=== PATIENT | female | born 1940 | race Caucasian/White ===

== ENCOUNTER 2022-06-10 14:22 | Outpatient (CLI) | payer OTHER, SELFPAY ==
--- NOTE | ~2022-06-10 | CT_ITS ---
EXAMINATION: CT abdomen pelvis wo con DATE: 06/10/2022 17:02 INDICATION: Chronic urinary tract infection. TECHNIQUE: Computed tomography (CT) of the abdomen and pelvis was performed without intravenous contr ast. Automated exposure control and iterative reconstruction technique were employed. The dose-length product was 1543.14 mGy-cm. COMPARISON: Abdomen radiographs 06/10/2022 FINDINGS: The visualized portions of the lung bases demonstrate mild atelectasis and mild chronic nela g disease. There is a cluster of tree-in-bud opacities in left lower lobe, likely inflammation/infect ion. No pleural effusion. The heart size is normal. There are pacer wires in right atrium, right vent ricle, and coronary sinus. No pericardial effusion. The liver is normal. There are gallstones in the gallbladder, which is normal in size. The spleen, pancreas, and adrenal glands are normal. There are cysts in the kidneys measuring up to 2.1 cm on the right. There are 2 mm and 4 mm stones in right kid mason. There are approximately five stones in left kidney measuring up to 3 mm. There is a 3 mm stone a t left ureteropelvic junction. There are no dilated loops of bowel. The appendix is not visualized. T here are no pathologically enlarged lymph nodes. There is no free intraperitoneal fluid. There is sev ere lumbar spondylosis. 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 There are changes of posterior fusion pr ocedure from L3 to S1 with pedicle screws. IMPRESSION: 1. Small stones in the kidneys and left ureteropelvic junction. No hydronephrosis. Reviewed, dictated and finalized at location A. IMPRESSION: 1. Small stones in the kidneys and left ureteropelvic junction. No hydronephros is.
--- NOTE | ~2022-06-10 | XR_ITS ---
XR abdomen/kub 1V 06/10/2022 16:56 INDICATION: Flank pain TECHNIQUE: KUB COMPARISON: No prior studies for comparison. FINDINGS: Bowel gas pattern is normal. There is no evidence of free air, mass, organomegaly, ascites or obstruction. There are calcifications overlying the left kidney, consistent with renal stones. Th e right kidney is obscured by bowel content. There are surgical changes consistent with fusion at the lumbosacral junction. Severe lumbar spondylosis. The bones appear intact. IMPRESSION: 1: Left nephrolithiasis. Reviewed, dictated and finalized at location A. IMPRESSION: 1: Left nephrolithiasis.
--- NOTE | ~2022-06-10 | CT_ITS ---
EXAMINATION:CT diagnostic chest wo con DATE: 06/10/2022 17:03 INDICATION: Pulmonary nodules. TECHNIQUE: Computed tomography (CT) of the chest was performed without intravenous contrast. Automate d exposure control and iterative reconstruction technique were employed. The dose-length product (DLP ) was 566.20 mGy-cm. COMPARISON: None. FINDINGS: There is septal thickening in the lungs with a peripheral and lower lung predominance. Ther e are centrilobular nodules and tree-in-bud opacities in left lower lobe. There are mild groundglass opacities in left lower lobe. There are scattered nodules in the lungs measuring up to 3 mm, likely b enign. No pleural effusion. There is left atrial enlargement of the heart. There are pacer wires in r ight atrium, right ventricle, and coronary sinus. No pericardial effusion. There are bridging endplat e osteophytes at multiple levels in the spine, consistent with diffuse idiopathic skeletal hyperostos is (DISH). There is mild chronic anterior wedging of multiple vertebral bodies. IMPRESSION: 1. Mild pneumonia in left lower lobe. 2. Mild chronic interstitial lung disease. Reviewed, dictated and finalized at location A.
== END 2022-06-10 14:23 | disposition home or self-care (01) ==
PROVIDERS: Referring Provider Internal Medicine; Visit Provider Nurse Practitioner Adult Health
DX: N39.0 Urinary tract infection, site not specified (principal); R91.8 Other nonspecific abnormal finding of lung field; J84.9 Interstitial pulmonary disease, unspecified; J18.9 Pneumonia, unspecified organism; N20.2 Calculus of kidney with calculus of ureter
CPT/HCPCS: 71250; 74018; 74176

== ENCOUNTER 2022-08-01 09:43 | Outpatient (CLI) | payer OTHER, SELFPAY ==
--- NOTE | ~2022-08-01 | CT_ITS ---
EXAMINATION: CT abdomen pelvis wo con DATE: 08/01/2022 10:18 INDICATION: Left flank pain. Renal stone. TECHNIQUE: Computed tomography (CT) of the abdomen and pelvis was performed without intravenous contr ast. The dose-length product was 1471.12 mGy-cm. Automated exposure control and iterative reconstruct ion technique were employed. COMPARISON: CT dated 06/10/2022. FINDINGS: Lung bases are unremarkable. Heart size normal. No significant pleural or pericardial effus ion. No significant vascular abnormality. No lymphadenopathy. Small hiatal hernia. There is a nodular appearance to the liver surface, suspicious for cirrhosis. Probable layering gallstones in the gallb ladder. The spleen, pancreas, adrenal glands are unremarkable. There is bilateral renal atrophy. Ther e is a 5 mm stone in the left renal pelvis. There are multiple nonobstructing bilateral renal stones. There are bilateral parapelvic cysts. Bladder is decompressed. There is severe osteoarthritis of the hips. There are spinal fusion changes at L3-S1. There is severe lumbar spondylosis. Nonobstructing b owel gas pattern. No free air or free fluid. Moderate atherosclerosis without aneurysm. No lymphadeno ed. IMPRESSION: 1. Probable cholelithiasis. Consider correlation with ultrasound. 2: Nonobstructing bilateral nephrolithiasis. Bilateral renal atrophy. 3: Nodular appearance to the liver surface, suspicious for cirrhosis. Reviewed, dictated and finalized at location A.
--- NOTE | ~2022-08-01 | XR_ITS ---
EXAMINATION: XR abdomen/kub 1V INDICATION: Left ureteral stone TECHNIQUE: Supine views of the abdomen were obtained on 2 radiographs. COMPARISON: CT from today FINDINGS: Stones measuring up to 4 mm are present in the lower pole of the kidney. The known stone of the left renal pelvis is obscured by bowel contents. No additional urolithiasis is identified. The v isualized lung bases are clear. There is severe lumbar spondylosis. Phleboliths are noted in the pelv is. IMPRESSION: 1. Left nephrolithiasis. Known stone of the left renal pelvis not well demonstrated. Reviewed, dictated and finalized at location A. IMPRESSION: 1. Left nephrolithiasis. Known stone of the left renal pelvis not well demonstr ated.
--- NOTE | ~2022-08-01 | CT_ITS ---
EXAMINATION: CT diagnostic chest wo con DATE: 08/01/2022 10:18 INDICATION: Left flank pain. Renal stones. TECHNIQUE: Computed tomography (CT) of the chest was performed without intravenous contrast. The dose -length product was 443.01 mGy-cm. Automated exposure control and iterative reconstruction technique were employed. COMPARISON: CT dated 06/10/2022 FINDINGS: Cardiomegaly. Pacer wires are present in the right atrium, right ventricle and coronary sin us. No pericardial or pleural effusion. No thoracic lymphadenopathy. There is bilateral renal atrophy with nonobstructing right nephrolithiasis. There are probable gallstones. Stable 5-6 mm groundglass nodule adjacent to the fissure, likely benign. Significant improvement of groundglass opacities in th e left lower lobe. Stable appearance to additional noncalcified and groundglass nodules compared with prior examination. There are a few scattered areas of septal thickening peripherally. There are stab le centrilobular nodules. IMPRESSION: 1. Near complete resolution of left lower lobe pneumonia with mild chronic interstitial lung disease. Reviewed, dictated and finalized at location A. IMPRESSION: 1. Near complete resolution of left lower lobe pneumonia with mild chronic inte rstitial lung disease.
== END 2022-08-01 09:44 | disposition home or self-care (01) ==
PROVIDERS: PCP Internal Medicine; Visit Provider Nurse Practitioner Adult Health
DX: R91.8 Other nonspecific abnormal finding of lung field (principal); N20.0 Calculus of kidney
CPT/HCPCS: 71250; 74018; 74176